=== PATIENT | female | born 1935 | race Caucasian/White ===

== ENCOUNTER 2017-11-28 08:42 | Day surgery (SDC) | payer MEDICARE ==
[2017-11-28] VITALS (7 sets, daily range): BP systolic 121–163; BP diastolic 70–85; PULSE 58–67; RESP 17–18; TEMP 97.6–97.7; O2SAT 96–98
[~2017-11-28] VITALS: Ht 157.5 cm; Wt 63.2 kg
[2017-11-28] MEDS ORDERED: LIDOCAINE HCL 1% 20 ML VIAL SQ ONE (08:43)
[2017-11-28] MEDS ORDERED: URSO300C2 PO (08:58)
[2017-11-28] MEDS ORDERED: SODIUM CHLOR 0.9% 1000 ML IV SCH (09:30)
[2017-11-28] MEDS ORDERED: MIDAZOLAM HCL 5 MG/5 ML VIAL ONE (11:18)
[2017-11-28] MEDS ORDERED: fentaNYL CITRATE 250 MCG/5 ML AMP ONE (11:18)
--- NOTE | 2017-11-28 12:04 | PD.RAD ---
Post CT Procedure Prog Note Pre Procedure Diagnosis: (1) Abnormal LFTs (liver function tests) Post Procedure Diagnosis: (1) Abnormal LFTs (liver function tests) Procedure Date: Nov 28, 2017 Supervising Radiologist: Kwesi Burroughs Anesthesia: Local, Analgesia, Conscious Sedation Plan of Activity Patient to Unit: [facility] Patient Condition: Good See PACS Report for procedural detail/treatment Biopsy Imaging Guidance: CT Side: Right Biopsy Procedure: Liver Specimen: Core Biopsy Kwesi Burroughs MD Nov 28, 2017 12:04
[2017-11-28] MEDS ORDERED: HYDROmorphone HCL 2 MG TAB PO PRN (12:15)
--- NOTE | 2017-11-28 14:24 | RADRPT ---
EXAM DATE/TIME: 11/28/2017 11:39 [place] COMPARISON: No previous studies available for comparison. INDICATIONS : Abnormal liver function,hepatic steatosis SEDATION TIME: 30 minutes BIOPSY SITE: Right liver MEDICATION(S): 1.) 2 mg midazolam (Versed) IV 2.) 100 mcg fentanyl (Sublimaze) IV DEVICE(S): 1.) 18 gauge Temno core biopsy needle MEDICAL HISTORY : Diverticullitis. Chronic kidney disease SURGICAL HISTORY : Appendectomy. Bladder surgery ENCOUNTER: Initial ACUITY: 1 day PAIN SCORE: 0/10 LOCATION: Liver A total of one core specimen(s) were obtained and sent to the laboratory for pathologic evaluation. PROCEDURE: 1. CT guided liver biopsy. 2. Conscious sedation with continuous EKG and oximetry monitoring. Prior to the procedure informed consent was obtained. Any appropriate prior imaging studies were rev iewed. Using automated exposure control and adjustment of the mA and/or kV according to patient size, radiat ion dose was kept as low as reasonably achievable to obtain optimal diagnostic quality images. DICOM format image data is available electronically for review and comparison. The site was prepped in a sterile fashion. Full sterile technique was used, including cap, mask, cyril rile gloves and gown and a large sterile sheet. Hand hygiene and 2% chlorhexidine and/or betadine/al cohol prep was utilized per protocol for cutaneous antisepsis. The skin and subcutaneous tissues wer e infiltrated with local anesthetic solution. With CT guidance the previously identified target was localized. Biopsy was performed using the presc ribed needle as above. Adequate hemostasis was obtained with compression at the puncture site. Follow-up CT scan reveals no hemorrhage. The patient tolerated the procedure well and there were no complications. The patient was returned to the Radiology Outpatient Unit in stable condition. CONCLUSION: Uncomplicated CT guided biopsy. Kwesi Burroughs MD on November 28, 2017 at 14:22 Board Certified Radiologist. This report was verified electronically.
== END 2017-11-28 15:20 | disposition home or self-care (01) ==
LOC: HRAD 08:42 → HRIP 08:46 → HRAD 15:20
PROVIDERS: ATTEND Internal Medicine Gastroenterology
DX: K75.81 Nonalcoholic steatohepatitis (NASH) (principal); K74.60 Unspecified cirrhosis of liver
CPT/HCPCS: 47000; 77012; 88307; 88313; 99152; 99153; J2250; J3010; J7030